=== PATIENT | female | born 1995 | race African-American/Black ===

== ENCOUNTER 2022-02-17 06:26 | Emergency (ER) | payer SELFPAY ==
[2022-02-17 06:41] VITALS: BP 148/93; PULSE 86
[2022-02-17 07:28] LABS: CORONAVIRUS COVID-19 NAA NEGATIVE (NEGATIVE); INFLUENZA A NAA NEGATIVE (NEGATIVE); INFLUENZA B NAA NEGATIVE (NEGATIVE)
[2022-02-17 08:32] LABS: CARBON DIOXIDE,CO2 26.2 mmol/L (21.0-32.0); POTASSIUM,K 3.9 mmol/L (3.5-5.1)
[2022-02-17] MEDS: Iopamidol 755 Mg/ML 100 ML Bottle IVPUSH ONE (09:29)
[2022-02-17] MEDS: Dextrose 5%-Lactated Ringers 1,000 ML IV STA (09:57)
[2022-02-17] MEDS: Prochlorperazine 10 MG/2 ML SDV IVPUSH ONE (09:58)
[2022-02-17] MEDS: Ketorolac 30 MG/ML SDV IVPUSH ONE (09:59)
[2022-02-17] MEDS: diphenhydrAMINE 50 MG/ML SDV IVPUSH ONE (10:00)
== END 2022-02-17 11:18 | disposition home or self-care (01) ==
LOC: MW.ED 06:26
DX: G43.909 Migraine, unspecified, not intractable, without status migrainosus (principal); E66.9 Obesity, unspecified; Z20.822 Contact with and (suspected) exposure to COVID-19; Z68.42 Body mass index [BMI] 45.0-49.9, adult
CPT/HCPCS: 0240U; 36415; 70450; 70496; 70498; 80048; 84703; 96374; 96375; 99284; J0780; J1200; J1885; J7121; Q9967; 99283